=== PATIENT | female | born 1965 | race Caucasian/White ===

== ENCOUNTER 2018-08-29 12:12 | Emergency (ER) | payer BC ==
[~2018-08-29] VITALS: Ht 170.2 cm; Wt 88.7 kg
--- NOTE | 2018-08-29 13:49 | NUR ---
PT AMBULATORY TO ROOM FROM LOBBY.
[2018-08-29 13:54] LABS: BASOPHILS # (AUTO) 0.03 x10^3/uL (0-0.1); BASOPHILS % (AUTO) 0 % (0-1); EOSINOPHILS # (AUTO) 0.35 x10^3/uL (0-0.4); EOSINOPHILS % (AUTO) 4 % (1-7); LYMPHOCYTES # (AUTO) 1.69 x10^3/uL (1-3.4); LYMPHOCYTES % (AUTO) 18 % (22-44); MD NO; MEAN CORPUSCULAR HEMOGLOBIN 31.2 pg (27.0-34.8); MEAN CORPUSCULAR HGB CONC 34.5 g/dL (32.4-35.8); MEAN CORPUSCULAR VOLUME 90.3 fL (80-100); MEAN PLATELET VOLUME 8.2 fL (7.4-10.4); MONOCYTES # (AUTO) 0.61 x10^3/uL (0.2-0.8); MONOCYTES % (AUTO) 7 % (2-9); NEUTROPHILS # (AUTO) 6.48 x10^3/uL (1.8-6.8); NEUTROPHILS % (AUTO) 71 % (42-75); PLATELET COUNT 239 x10^3/uL (130-400); RED BLOOD COUNT 4.85 x10^6/uL (3.82-5.3); RED CELL DISTRIBUTION WIDTH 12.9 % (9.6-15.2)
[2018-08-29 13:57] LABS: ALBUMIN 3.8 g/dL (3.4-5.0); ANION GAP 6 mmol/L (5-15); CHLORIDE 101 mmol/L (98-107); CREATININE 0.75 mg/dL (0.55-1.02)
--- NOTE | 2018-08-29 14:20 | NUR ---
PT SITTING UP IN [place] NOTED. PT REPORTS [place] X ONE WEEK W/ INCREASING SINUS PRESSURE/BILAT EAR PAIN/SORE THROAT X TWO DAYS. PT REPORTS POSTERIOR HEAD/NECK SWELLING WITH DIFFUSE RASH X YESTERDAY. SEEN AT YESTERDAY AND WAS TOLD TO COME TO ED IF WORSE. PT W/ FULL NECK ROM; DENIES FEVER/PRODUCTIVE COUGH/N/V/CP/SOB. AIRWAY PATENT, SPEECH CLEAR. DENIES VISION CHANGES OR DRAINAGE FROM RASH BP/SPO2 MONITOR IN PLACE. SO AT BEDSIDE.
[2018-08-29 14:34] VITALS: BP 158/83
[2018-08-29 14:37] LABS: HCT (SEDRATE) 43.8 % (34.6-47.8)
--- NOTE | 2018-08-29 15:11 | NUR ---
PT MEDICATED PER EMAR. DC EDUCATION PROVIDED, PT DEMONSTRATES UNDERSTANDING. PT AMBULATED STEADILY TO DC WITH RN AND SO.
== END 2018-08-29 15:13 | disposition home or self-care (01) ==
LOC: ED 14:30
DX: J01.10 Acute frontal sinusitis, unspecified (principal); J01.00 Acute maxillary sinusitis, unspecified; L50.9 Urticaria, unspecified; I10 Essential (primary) hypertension
CPT/HCPCS: 36415; 71046; 80048; 82040; 83605; 85025; 85651; 87040; 99284; J7512

== ENCOUNTER → 2018-09-09 | Outpatient (CLI) | payer BC ==
[~2018-09-09] MED LIST: OMNIPAQUE 350 MG/ML, 100ML BOTTLE ONE
== END | disposition home or self-care (01) ==
LOC: CFH 14:09
PROVIDERS: ATTEND Nurse Practitioner Family
DX: J32.0 Chronic maxillary sinusitis (principal); J34.89 Other specified disorders of nose and nasal sinuses; R59.0 Localized enlarged lymph nodes
CPT/HCPCS: 70491; Q9967

== ENCOUNTER → 2019-06-29 | Outpatient (CLI) | payer BC | END | disposition home or self-care (01) | LOC: CFH 08:44 | PROVIDERS: ATTEND Internal Medicine | DX: M25.511 Pain in right shoulder (principal); M75.31 Calcific tendinitis of right shoulder; M65.811 Other synovitis and tenosynovitis, right shoulder; Z72.89 Other problems related to lifestyle ==

== ENCOUNTER → 2021-03-24 | Outpatient (CLI) | payer BC | END | disposition home or self-care (01) | LOC: CARD 08:41 | PROVIDERS: ATTEND Psychiatry & Neurology Neurology | DX: G40.209 Localization-related (focal) (partial) symptomatic epilepsy and epileptic syndromes with complex partial seizures, not intractable, without status epilepticus (principal) | CPT/HCPCS: 95819 ==